=== PATIENT | female | born 1935 | race Caucasian/White ===

== ENCOUNTER 2016-07-10 18:58 | Inpatient (IN) | payer MEDICARE, OTHER ==
[2016-07-10] MEDS ORDERED: IPRATROPIUM/ALBUTEROL 0.5-2.5 MG/3 ML AMPUL NEB ONE (19:06)
[2016-07-10] MEDS ORDERED: NORMAL SALINE IV PRN (19:23)
[2016-07-10] MEDS ORDERED: VANCOMYCIN HCL INJ 1000 MG VIAL IV ONE (19:23)
[2016-07-10] MEDS ORDERED: CEFEPIME 1 GM/D5W RTU 50 ML IV ONE (19:24)
--- NOTE | 2016-07-10 19:29 | ER Document Report ---
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 EMS was called to her house yesterday, she was given a DuoNeb and improved. She declined transport at that time. Today, she called EMS and was tachypneic, tachycardic and satting 70% on room air. She does not wear oxygen at home. EMS gave her 1 DuoNeb, 125 mg Solu-Medrol and was placed on CPAP. She kept trying to rip off her CPAP and 2 mg of Valium was given by EMS. When she arrived to the emergency room, she was switched to BiPAP and is no longer agitated. The patient will answer some questions appropriately, but with other questions, she does not answer them. When asked if she would want intubation or CPR if needed, she did not provide an answer. No DNR/DNi forms with her. - Related Data Allergies/Adverse Reactions: Penicillins Allergy (Unknown, Verified 01/23/12 12:24) Past Medical History - General Information source: Relative - Son, Emergency Med Personnel - Social History Smoking Status: Former Smoker Family History: Reviewed & Not Pertinent - Past Medical History Cardiac Medical History: Reports: Hx Coronary Artery Disease, Hx Hypercholesterolemia, Hx Hypertension Pulmonary Medical History: Denies: Hx Tuberculosis Neurological Medical History: Reports: Hx Cerebrovascular Accident - 09/16. Denies: Hx Seizures Malignancy Medical History: Reports: Hx Cervical Cancer, Hx Lung Cancer - present, Hx Ovarian Cancer Musculoskeltal Medical History: Reports Hx Arthritis Traumatic Medical History: Reports: Hx Fractures - Right Past Surgical History: Reports: Hx Hysterectomy, Hx Orthopedic Surgery - right hip. Denies: Hx Pacemaker - Immunizations Hx Diphtheria, Pertussis, Tetanus Vaccination: No - states 30 years ago Hx Pneumococcal Vaccination: 11/06/11 Review of Systems - Review of Systems -: Yes ROS unobtainable due to patient's medical condition Physical Exam - Vital signs Vitals: Resp Pulse Ox 20 95 07/10/16 12:51 07/10/16 12:51 - Notes Notes: PHYSICAL EXAMINATION: GENERAL: Frail, tachypneic, in moderate respiratory distress on BiPap HEAD: Atraumatic, normocephalic. EYES: Pupils equal round and reactive to light, extraocular movements intact, sclera anicteric, conjunctiva are normal. ENT: nares patent, oropharynx clear without exudates. Moist mucous membranes. NECK: Normal range of motion, supple without lymphadenopathy LUNGS: Tachypneic, crackles in right lower lobe, decreased air movement in right upper lobe HEART: Tachycardic, regular rhythm ABDOMEN: Soft, nontender, normoactive bowel sounds. No guarding, no rebound. No masses appreciated. EXTREMITIES: Chronically contracted left upper extremity, no pitting or edema. No cyanosis. NEUROLOGICAL: AAOx2 (name, place), cranial nerves grossly intact. Normal sensory exam. PSYCH: Normal mood, normal affect. SKIN: Warm, Dry, normal turgor, no rashes or lesions noted. Course - Re-evaluation Re-evalutation: 07/10/16 20:39 Son to bedside. 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 Her primary care physician is SOPHIA Coker, in [place] and she thinks her Oncologist was at [place]. Patient states that she does not want to be intubated even if this means that she would . She did not give an answer about CPR. 07/11/16 00:07 Pt with pleural effusions, lung mass and multiple areas of atelectasis on CTA. No pulmonary embolism. With the leukocytosis, tachycardia, tachypnea and hypoxia, broad-spectrum antibiotics were started after blood cultures were sent. Pt resting comfortably on BiPap. Pt requires Inpatient admission due to hypoxia (70% on RA and no home O2). 07/11/16 00:30: Pt started to become hypotensive with worsening tachycardia. Levophed was started through a large peripheral IV line and then switched over to the RIJ Central line after it was placed. Her MAPs improved with low doses (5 ) of Levophed. 07/11/16 02:[address] Correa and will admit patient as Inpatient to ICU. - Vital Signs Vital signs: Temp Pulse Resp BP Pulse Ox 22 H 133/82 H 100 07/11/16 02:15 07/11/16 02:15 07/11/16 02:15 - Laboratory Result Diagrams: 07/10/16 19:45 07/10/16 19:45 Laboratory results interpreted by me: 07/10/16 07/10/16 07/10/16 19:45 19:45 19:45 WBC 15.4 H Hgb 10.8 L Hct 34.3 L MCH 26.8 L MCHC 31.6 L RDW 16.0 H Seg Neutrophils % 90.0 H Lymphocytes % 5.6 L Absolute Neutrophils 13.9 H VBG pCO2 VBG HCO3 Sodium 134.7 L Carbon Dioxide 17 L Est GFR (Non-Af Amer) 57 L Glucose 136 H Direct Bilirubin 0.5 H NT-Pro-B Natriuret Pep 6320 H 07/10/16 19:45 WBC Hgb Hct MCH MCHC RDW Seg Neutrophils % Lymphocytes % Absolute Neutrophils VBG pCO2 32.3 L VBG HCO3 17.5 L Sodium Carbon Dioxide Est GFR (Non-Af Amer) Glucose Direct Bilirubin NT-Pro-B Natriuret Pep - Diagnostic Test Radiology reviewed: Image reviewed, Reports reviewed Radiology results interpreted by me: CXR: Confluent densities in the right upper lung field and right lung base as noted above these could represent pneumonic infiltrates or atelectatic changes. Followup to complete clearing is recommended to exclude an underlying process. Other findings as noted above 07/11/16 00:04 No evidence for pulmonary embolic disease. A moderate size right and small left pleural effusions are identified. There is extensive associated airspace consolidation on the right consistent with atelectatic changes. There is minimal airspace consolidation in the left lung base most consistent with atelectatic changes. Mass lesion is identified in the right upper lung field showing interval increase in size as compared to the previous study. The appearance is consistent with a neoplastic process. The mass extends to the right hilar region. Other findings as noted above - EKG Interpretation by Me EKG shows normal: Sinus rhythm Rate: Tachycardia - HR 128 [place]/QRS: IVCD When compared to previous EKG there are: No significant change Procedures - Central Line Right Internal jugular Time completed: 00:54 Consent obtained: Yes - Verbal consent witnessed by 2 RNs Central line pre-insertion: Sterile PPE donned, Chloraprep applied, Sterile drapes applied Central line lumen type: Triple Anesthetic type: 1% Lidocaine mL's of anesthesia: 5 Ultrasound guided: Yes CM at insertion site: 16 Line secured with sutures: Yes Central line post-insertion: Blood return from lumens, Biopatch applied, Sutured , Sterile dressing applied, Position confirmed w/ CXR Number of attempts: 1 Complications: No Critical Care Note - Critical Care Note Total time excluding time spent on procedures (mins): 65 Discharge - Discharge Clinical Impression: Hypoxia, Pleural effusion, Septic shock Pneumonia Qualifiers: Pneumonia type: due to unspecified organism Laterality: right Lung location: unspecified part of lung Qualified Code(s): J18.9 - Pneumonia, unspecified organism Lung cancer Qualifiers: Laterality: unspecified laterality Lung location: unspecified part of lung Qualified Code(s): C34.90 - Malignant neoplasm of unspecified part of unspecified bronchus or lung Condition: Critical Disposition: ADMITTED INPATIENT [facility] Admitted: ICU
[2016-07-10 20:05] LABS: ABSOLUTE BASOPHILS # (AUTO) 0.1 10^3/uL (0.0-0.2); ABSOLUTE LYMPHOCYTES (AUTO) 0.9 10^3/uL (0.5-4.7); ABSOLUTE MONOCYTES (AUTO) 0.6 10^3/uL (0.1-1.4); ABSOLUTE NEUT (AUTO) 13.9 10^3/uL (1.7-8.2); BASOPHILS % (AUTO) 0.3 % (0-2); EOSINOPHILS % (AUTO) 0.2 % (0-6); HEMATOCRIT 34.3 % (36.0-47.0); HEMOGLOBIN 10.8 g/dL (12.0-15.5); HGB HCT DIFFERENCE -1.9; LYMPHOCYTES % (AUTO) 5.6 % (13-45); MEAN CORPUSCULAR HEMOGLOBIN 26.8 pg (27.0-33.4); MEAN CORPUSCULAR HGB CONC 31.6 g/dL (32.0-36.0); MEAN CORPUSCULAR VOLUME 85 fl (80-97); MONOCYTES % (AUTO) 3.9 % (3-13); PARTIAL THROMBOPLASTIN TIME 26.9 SEC (23.5-35.8); PROTHROMBIN TIME 13.8 SEC (11.4-15.4); RED BLOOD COUNT 4.03 10^6/uL (3.72-5.28); WHITE BLOOD COUNT 15.4 10^3/uL (4.0-10.5)
[2016-07-10 20:18] LABS: ALANINE AMINOTRANSFERASE 27 U/L (9-52); ALBUMIN 3.5 g/dL (3.5-5.0); ALKALINE PHOSPHATASE 96 U/L (38-126); ANION GAP 12 (5-19); ASPARTATE AMINO TRANSFERASE 23 U/L (14-36); BILIRUBIN,DIRECT 0.5 mg/dL (0.0-0.4); BLOOD UREA NITROGEN 12 mg/dL (7-20); CALCIUM 8.6 mg/dL (8.4-10.2); CARBON DIOXIDE 17 mmol/L (22-30); CHLORIDE 106 mmol/L (98-107); CREATINE KINASE 55 U/L (30-135); CREATININE RESULT 0.95 mg/dL (0.52-1.25); GLUCOSE 136 mg/dL (75-110); LIPASE 97.2 U/L (23-300); POTASSIUM 4.3 mmol/L (3.6-5.0); SODIUM 134.7 mmol/L (137-145); TOTAL PROTEIN 6.4 g/dL (6.3-8.2)
--- NOTE | 2016-07-10 20:23 | RADIOLOGY REPORT (SQ) ---
EXAM DESCRIPTION: CHEST SINGLE VIEW COMPLETED DATE/TIME: 07/10/2016 7:23 pm REASON FOR STUDY: hypxoia COMPARISON: January 2012 EXAM PARAMETERS: NUMBER OF VIEWS: One view. TECHNIQUE: Single frontal radiographic view of the chest acquired. RADIATION DOSE: NA LIMITATIONS: None. FINDINGS: LUNGS AND PLEURA: Confluent densities are identified in the right upper lung field and rig ht lung base which could represent pneumonic infiltrates or atelectatic changes. Follow-up to comple te clearing is recommended to exclude an underlying process. A right lung mass was identified in the right upper lobe on the previous study. The left lung is clear. There is some blunting of the righ t costophrenic angle which could represent a small right pleural effusion. MEDIASTINUM AND HILAR STRUCTURES: No masses. Contour normal. HEART AND VASCULAR STRUCTURES: The configuration of the heart and mediastinal structures is unchanged . BONES: No acute findings. HARDWARE: None in the chest. OTHER: No other significant finding. IMPRESSION: Confluent densities in the right upper lung field and right lung base as noted above the se could represent pneumonic infiltrates or atelectatic changes. Followup to complete clearing is re commended to exclude an underlying process. Other findings as noted above TECHNICAL DOCUMENTATION: JOB ID: [id number]
[2016-07-10 20:30] LABS: TROPONIN I < 0.012 ng/mL
[2016-07-10 20:44] LABS: VENOUS BLOOD BASE EXCESS -7.2 mmol/L; VENOUS BLOOD HCO3 17.5 mmol/L (20-32); VENOUS BLOOD PCO2 32.3 mmHg (35-63); VENOUS BLOOD PH 7.35 (7.30-7.42)
--- NOTE | 2016-07-10 21:14 | EKG REPORT ---
SEVERITY:- ABNORMAL ECG - SINUS TACHYCARDIA WITH FREQUENT ATRIAL ECTOPICS MULTIFORM VENTRICULAR PREMATURE COMPLEXES PROBABLE LEFT ATRIAL ABNORMALITY NONSPECIFIC INTRAVENTRICULAR CONDUCTION DELAY LOW VOLTAGE IN FRONTAL LEADS : Confirmed by: Lupillo Boyle 10-Jul-2016 21:13:57
--- NOTE | 2016-07-10 23:48 | RADIOLOGY REPORT (SQ) ---
EXAM DESCRIPTION: CTA CHEST COMPLETED DATE/TIME: 07/10/2016 10:55 pm REASON FOR STUDY: hypoxia, Hx lung cancer, tachycardia COMPARISON: CTA of the chest dated January 2012 and chest x-ray dated 07/10/2016 TECHNIQUE: CT scan of the chest performed using helical scanning technique with dynamic intravenous contrast injection. Images reviewed with lung, soft tissue and bone windows. Reconstructed coronal and sagittal MPR images reviewed. Additional 3 dimensional post-processing performed to develop Maximal Intensity Projection images (SD P). All images stored on PACS. All CT scanners at this facility use dose modulation, iterative reconstruction, and/or weight based d osing when appropriate to reduce radiation dose to as low as reasonably achievable (ALARA). [facility]: Dose Right [facility]: CareDose [facility]: Dose Right [facility]: Teradose 4D [facility]: [employer] CONTRAST TYPE AND DOSE: 100 mL Isovue 370 RENAL FUNCTION: Creatinine 0.95 RADIATION DOSE: 57.31 mGy. LIMITATIONS: None. FINDINGS: LUNGS AND PLEURA: A moderate size right and small left pleural effusions are identified. There is associated extensive airspace consolidation in the right lung consistent with atelectatic ch anges. There is some minimal airspace consolidation in the left lung base most consistent with atele ctatic changes. A mass lesion is identified in the right upper lung field measuring 4.9 x 5.7 cm in diameter showing interval increase in size as compared to the previous chest CT scan. The appearance is consistent with a neoplastic process. AORTA AND GREAT VESSELS: No aneurysm or dissection. There is ectasia of the thoracic aorta with exte nsive vascular calcifications HEART: No pericardial effusion. PULMONARY ARTERIES: No emboli visualized in the main pulmonary arteries or the segmental branches. HILAR AND MEDIASTINAL STRUCTURES: The mass lesion on the right extends to the right hilar region. HARDWARE: None in the chest. UPPER ABDOMEN: No significant findings. Limited exam. THYROID AND OTHER SOFT TISSUES: No masses. No adenopathy. BONES: No acute or significant finding. 3D MIPS: Confirm above findings. OTHER: No other significant finding. IMPRESSION: No evidence for pulmonary embolic disease. A moderate size right and small left pleural effusions are identified. There is extensive associated airspace consolidation on the right consist ent with atelectatic changes. There is minimal airspace consolidation in the left lung base most con sistent with atelectatic changes. Mass lesion is identified in the right upper lung field showing in terval increase in size as compared to the previous study. The appearance is consistent with a neopl astic process. The mass extends to the right hilar region. Other findings as noted above TECHNICAL DOCUMENTATION: JOB ID: [id number] Quality ID # [id number]: Final reports with documentation of one or more dose reduction techniques (e.g., Au tomated exposure control, adjustment of the mA and/or kV according to patient size, use of iterative reconstruction technique) 2010 [employer]- All Rights Reserved
[2016-07-11] MEDS ORDERED: DEXTROSE 5%-WATER 250 ML with NOREPINEPHRINE BITARTRATE 4 MG IV PRN ×4 (00:22→04:23)
[2016-07-11] MEDS ORDERED: NOREPINEPHRINE BITARTRATE INJ/PF 4 MG/4 ML SDV IV ONE ×2 (00:25→02:30)
--- NOTE | 2016-07-11 01:19 | RADIOLOGY REPORT (SQ) ---
EXAM DESCRIPTION: CHEST SINGLE VIEW COMPLETED DATE/TIME: 07/11/2016 1:05 am REASON FOR STUDY: central line placement COMPARISON: 07/10/2016. CT, 1 day prior. EXAM PARAMETERS: NUMBER OF VIEWS: One view. TECHNIQUE: Single frontal radiographic view of the chest acquired. RADIATION DOSE: NA LIMITATIONS: None. FINDINGS: LUNGS AND PLEURA: Moderate consolidative opacity of the right hemithorax and moderate inte rstitial markings appears worsened possibly due to positioning -layering. Small right layered effusi on. MEDIASTINUM AND HILAR STRUCTURES: No masses. Contour normal. HEART AND VASCULAR STRUCTURES: Prominent cardiac silhouette. BONES: No acute findings. HARDWARE: Right internal jugular central line tip at the cavoatrial junction. OTHER: No other significant finding. IMPRESSION: Adequate appearing right IJ line. Moderate opacities -layered effusion of the right hem ithorax. TECHNICAL DOCUMENTATION: JOB ID: [id number]
[2016-07-11] MEDS ORDERED: HALOPERIDOL LACTATE INJ 5 MG/1 ML VIAL IV ONE (02:27)
[2016-07-11] MEDS ORDERED: HALOPERIDOL LACTATE INJ 5 MG/1 ML VIAL ONE (02:31)
[2016-07-11 03:28] LABS: ADD ON TESTING BLD IN LAB ACKNOWLEDGE
[2016-07-11 03:45] LABS: MAGNESIUM 2.1 mg/dL (1.6-2.3)
[2016-07-11] MEDS ORDERED: DEXTROSE 50%-WATER 25 GM/50 ML DISP.SYRIN IV PRN ×2 (04:20)
[2016-07-11] MEDS ORDERED: ALBUTEROL SULFATE 0.083% NEB 2.5 MG/3 ML AMPUL NEB PRN (04:20)
[2016-07-11] MEDS ORDERED: GLUCAGON,HUMAN RECOMB 1 MG INJ SUBCUT PRN (04:20)
[2016-07-11] MEDS ORDERED: DEXTROSE 40% GEL 15 GM TUBE PO PRN ×2 (04:20)
[2016-07-11] MEDS ORDERED: NORMAL SALINE 1000 ML 1,000 ML IV PRN ×2 (04:24→08:21)
[2016-07-11] MEDS ORDERED: VANCOMYCIN HCL 0 MG in DEXTROSE 5%-WATER 250 ML IV NR (04:30)
[2016-07-11] MEDS ORDERED: PHARMACY COMMUNICATION ORDER MC SCH (04:30)
[2016-07-11] MEDS ORDERED: ACETAMINOPHEN 650 MG SUPP.RECT PR PRN (04:33)
--- NOTE | 2016-07-11 04:59 | PDOC H&P ---
History of Present Illness Admission Date/PCP: 07/11/16 02:55 PCP Zoltan Coker [facility] [place] Patient complains of: difficulty breathing History of Present Illness: MARYANN LAMAS is a 80 year old female with underlying 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 EMS was called to her home on the fourth due to shortness of breath but she declined transport at that time. However, on the fifth, when shortness of breath worsened, EMS was called again. 70% saturation on room air. No home oxygen. En route, was given 1 DuoNeb, 125 mg of Solu-Medrol, and was placed on CPAP. Patient kept trying to remove the CPAP. 2 mg of Valium was given by EMS. BiPAP was subsequently applied, which she tolerated well. Patient has been discussed with emergency room physician who evaluated the patient. Patient appears quite ill and only mumbles incoherently and is able to provide no history whatsoever in terms of acute or chronic events, review of systems, personal habits, family history, etc. No friends or family are present. Old inpatient records are reviewed. Son was present earlier, and by discussions with emergency room physician with son and patient, patient decided she did not want to be intubated. No answer was given when remaining aspects of CPR were discussed. So at the present time , she is DO NOT INTUBATE status. At 4:10 AM the morning of the sixth, I did leave a generic voicemail with son to please call me at the hospital. Patient did become hypotensive, requiring application of Levophed along with internal jugular central line, inserted by the emergency room physician. No further information available this point in time. Admitted to our service on January 23, 2012 for left hip fracture, status post fall. History and physical exam have been reviewed. Laboratory results are listed in Original and are reviewed. X-ray summary results are listed below, with full report(s) reviewed. . EKG reviewed and compared to prior tracing from January 24, 2012. Social history/personal habits: No information available this point in time. Allergies/adverse reactions are listed in Original and are reviewed. Tolerated cefepime without problems. Home medications initially autopopulated into [employer] may not accurately reflect patient's true medications, dosages, and/or frequencies. instrument room technician to reconcile medications. Unfortunately, patient not able to provide any information related to medications/dosages/frequencies. REVIEW OF SYSTEMS: See history and present illness. No further information available this point in time. PHYSICAL EXAMINATION: 5 feet tall. 40 kg. BMI 17.2 kg/m. Blood pressure 110/56. Pulse 129 and regular. 99% saturation on BiPAP 15/5, 80% FiO2. Respirations are 21 and unlabored. Temperature 97.6. Thin frail appearing elderly female, appearing perhaps a bit older than her stated age. Appears not to feel very well. Maintaining her airway well. Does look at speaker when addressed in a slightly loud voice. Only mumbles incoherently. Otherwise, is poorly interactive with her surroundings. Male emergency room nursing education consultant present. Skin is warm and dry. No grossly obvious evidence of rash in areas of skin examined. No subcutaneous nodules palpated. ENT: Perhaps slightly hard of hearing to normal conversation. Tongue midline on protrusion pink and slightly tacky. Eyes: No scleral icterus. Pupils equal and reactive to light at 4 mm. Ivan conjunctivae. Neck is nontender to palpation. Midline trachea. No palpable thyroid nodule mass enlargement or tenderness. Lymphatic: No palpable cervical or clavicular nodes. Neck and lymphatic exams limited by patient body habitus. Psychiatric: Cannot be adequately evaluated due to her current status. See above. Lungs: Auscultation reveals slightly coarse breath sounds bilaterally in the bases, with some decrease in the right base breath sounds compared to the left. No use of accessory respiratory muscles. Cardiovascular: Heart regular rate and rhythm, without gallop murmur or rub. No carotid or abdominal aortic bruits. No ankle or pedal edema. Faintly palpable dorsalis pedis pulses. Slight wrinkling of the skin and soft tissue in her lower extremities, not uncommonly seen when prior soft tissue swelling has resolved. Abdomen:soft slightly distended nontender with positive bowel sounds. Unable to adequately evaluate abdomen for masses or organomegaly due to distention. Extremities: Feet are warm and dry. No calf tenderness to compression. Gentle manipulation of lower extremities fails to reveal any obvious evidence of injury or instability to knees hips or ankles. Neurologic: Moves upper extremities grossly normally. Patellar reflexes absent. Absent Babinski. Light touch cannot be determined due to her current status. Past Medical History Past Medical History: Information limited to prior records, which are reviewed. Pulmonary Medical History: Reports: Chronic Obstructive Pulmonary Disease (COPD) Neurological Medical History: Reports: Other - Prior stroke with left hemiparesis Malignancy Medical History: Reports: Cervical Cancer, Lung Cancer - Metastatic small cell, status post chemoradiation treatment, Ovarian Cancer Past Surgical History Past Surgical History: Reports: Hysterectomy, Orthopedic Surgery - right hip Social History Information Source: Emergency Med Personnel, [facility] Records Smoking Status: Unknown if Ever Smoked - Advance Directive Resuscitation Status: Do Not Intubate Surrogate healthcare decision maker:: Probably son David, but not completely certain. Family History Family History: Reviewed & Not Pertinent Parental Family History Reviewed: No - Patient cannot provide any information. Children Family History Reviewed: No - Patient cannot provide any information. Sibling(s) Family History Reviewed.: No - Patient cannot provide any information. Medication/Allergy Home Medications: Albuterol Sulfate [Ventolin 0.083% Neb 2.5 mg/3 ml Ampul] 2.5 mg NEB RTQ4 Amlodipine Besylate [Norvasc 10 mg Tablet] 10 mg PO DAILY 07/11/16 RX: Simvastatin 20 mg PO QHS 07/11/16 Allergies/Adverse Reactions: Penicillins Allergy (Unknown, Verified 07/11/16 04:34) Physical Exam Vital Signs: Temp Pulse Resp BP Pulse Ox 98.0 F 15 111/53 L 100 07/11/16 03:25 07/11/16 03:25 07/11/16 03:25 07/11/16 03:25 Intake & Output 07/10/16 07/11/16 07/12/16 00:59 00:59 00:59 Weight 40 kg Results Impressions: Chest/Abdomen CTA 07/10/16 19:08 IMPRESSION: No evidence for pulmonary embolic disease. A moderate size right and small left pleural effusions are identified. There is extensive associated airspace consolidation on the right consistent with atelectatic changes. There is minimal airspace consolidation in the left lung base most consistent with atelectatic changes. Mass lesion is identified in the right upper lung field showing interval increase in size as compared to the previous study. The appearance is consistent with a neoplastic process. The mass extends to the right hilar region. Other findings as noted above Chest X-Ray 07/11/16 00:54 IMPRESSION: Adequate appearing right IJ line. Moderate opacities -layered effusion of the right hemithorax. Assessment & Plan - Diagnosis (1) Acute respiratory failure with hypoxemia Is this a current diagnosis for this admission?: YesPlan: Transition to CPAP; wean as tolerated. N.p.o. for the present time. (2) Basal pneumonia of both lungs Is this a current diagnosis for this admission?: YesPlan: Patient will be admitted under pneumonia protocol. Incentive spirometry twice a day. Scheduled DuoNeb's. Antibiotics will consist of intravenous Levaquin and vancomycin, along with cefepime. Pharmacy to assist with dosing. Knee high SCDs for DVT prophylaxis, along with subcutaneous heparin. Time spent in evaluation and management of patient: 58 critical-care minutes. (3) Septic shock Is this a current diagnosis for this admission?: Yes (4) Lung cancer Qualifiers: Laterality: unspecified laterality Lung location: unspecified part of lung Qualified Code(s): C34.90 - Malignant neoplasm of unspecified part of unspecified bronchus or lung Is this a current diagnosis for this admission?: Yes (5) Anemia Qualifiers: Anemia type: unspecified type Qualified Code(s): D64.9 - Anemia, unspecified Is this a current diagnosis for this admission?: YesPlan: Follow-up CBC with differential. No need for transfusion at present time. (6) DNI (do not intubate) Is this a current diagnosis for this admission?: YesPlan: Have not heard from son after generic voicemail message left. - Inpatient Certification Based on my medical assessment, after consideration of the patient's comorbidities, presenting symptoms, or acuity I expect that the services needed warrant INPATIENT care.: Yes I certify that my determination is in accordance with my understanding of Medicare's requirements for reasonable and necessary INPATIENT services [42 CFR 412.3e].: Yes Medical Necessity: Need Close Monitoring Due to Risk of Patient Decompensation, Need For IV Fluids, Need For Continuous Telemetry Monitoring, Need for Nebulizer Therapy and Monitoring of Response, Need for IV Antibiotics, Risk of Diagnosis Which Will Require Inpatient Eval/Care/Monitoring
[2016-07-11] MEDS ORDERED: LEVOFLOXACIN 750 MG/D5W RTU 750 MG/150 ML RTUPB IV ONE (05:00)
[2016-07-11 06:25] LABS: VENOUS BLOOD BASE EXCESS -6.7 mmol/L; VENOUS BLOOD HCO3 18.5 mmol/L (20-32); VENOUS BLOOD PCO2 35.9 mmHg (35-63); VENOUS BLOOD PH 7.33 (7.30-7.42)
[2016-07-11 06:27] LABS: HEMATOCRIT 31.8 % (36.0-47.0); HEMOGLOBIN 10.1 g/dL (12.0-15.5); HGB HCT DIFFERENCE -1.5; MEAN CORPUSCULAR HEMOGLOBIN 27.1 pg (27.0-33.4); MEAN CORPUSCULAR HGB CONC 31.8 g/dL (32.0-36.0); MEAN CORPUSCULAR VOLUME 85 fl (80-97); RED BLOOD COUNT 3.73 10^6/uL (3.72-5.28); WHITE BLOOD COUNT 12.7 10^3/uL (4.0-10.5)
[2016-07-11] MEDS ORDERED: NORMAL SALINE INJ/PF 0.9% 10 ML SDV IV PRN (06:41)
[2016-07-11 06:43] LABS: ANION GAP 10 (5-19); BLOOD UREA NITROGEN 13 mg/dL (7-20); CALCIUM 7.9 mg/dL (8.4-10.2); CARBON DIOXIDE 18 mmol/L (22-30); CHLORIDE 107 mmol/L (98-107); CREATININE RESULT 0.99 mg/dL (0.52-1.25); GLUCOSE 165 mg/dL (75-110); POTASSIUM 4.6 mmol/L (3.6-5.0)
[2016-07-11 06:59] LABS: BAND NEUTROPHILS % (MANUAL) 1 % (3-5); BASOPHILS % (MANUAL) 0 % (0-2); EOSINOPHILS % (MANUAL) 0 % (0-6); LYMPHOCYTES % (MANUAL) 5 % (13-45); TOTAL CELLS COUNTED 100
[2016-07-11 07:00] LABS: ANISOCYTOSIS 1+; BURR CELLS SLIGHT; HYPOCHROMASIA SLIGHT; OVALOCYTES SLIGHT; POIKILOCYTOSIS 1+; POLYCHROMASIA SLIGHT; TOXIC GRANULATION 1+
[2016-07-11] MEDS: IPRATROPIUM/ALBUTEROL 0.5-2.5 MG/3 ML AMPUL NEB SCH ×3 (08:13→19:54)
[2016-07-11] MEDS ORDERED: PHARMACY COMMUNICATION ORDER MC NR (08:15)
[2016-07-11] MEDS ORDERED: METOPROLOL TARTRATE PF/INJ 5 MG/5 ML SDV IV PRN (08:22)
[2016-07-11] MEDS ORDERED: FUROSEMIDE INJ/PF 20 MG/2 ML SDV IV ONE (09:00)
[2016-07-11] MEDS ORDERED: MORPHINE SULFATE 10 MG/ML INJ IV ONE (09:00)
[2016-07-11] MEDS ORDERED: METOPROLOL TARTRATE PF/INJ 5 MG/5 ML SDV IV ONE (09:00)
[2016-07-11] MEDS: FAMOTIDINE INJ/PF 20 MG/2 ML SDV IV SCH ×2 (09:01→21:00)
[2016-07-11] MEDS: HEPARIN SOD (PORCINE) 5,000 UNIT/ML 1 ML SYRINGE SUBCUT SCH ×2 (09:02→21:00)
[2016-07-11] MEDS ORDERED: CEFEPIME 2 GM/D5W RTU 50 ML IV SCH (10:00)
[2016-07-11] MEDS ORDERED: FAMOTIDINE INJ/PF 20 MG/2 ML SDV IV SCH (10:00)
--- NOTE | 2016-07-11 12:16 | EKG REPORT ---
SEVERITY:- ABNORMAL ECG - SINUS TACHYCARDIA WITH IRREGULAR RATE 88-140 RIGHT BUNDLE BRANCH BLOCK LOW VOLTAGE IN FRONTAL LEADS CONSIDER ANTEROSEPTAL INFARCT : Confirmed by: Alison Woodson MD 11-Jul-2016 12:15:01
[2016-07-11] MEDS: MORPHINE SULFATE 10 MG/ML INJ IV PRN ×2 (14:29→20:48)
[2016-07-11 15:09] LABS: APPEARANCE,URINE SLIGHTLY-CLOUDY; BILIRUBIN,URINE NEGATIVE (NEGATIVE); GLUCOSE, URINE NEGATIVE (NEGATIVE); KETONES,URINE TRACE mg/dL (NEGATIVE); LEUKOCYTE ESTERASE,URINE SMALL (NEGATIVE); NITRITE,URINE NEGATIVE (NEGATIVE); PROTEIN,URINE 30 mg/dL (NEGATIVE); URINE SPECIFIC GRAVITY > 1.060; UROBILINOGEN,URINE NEGATIVE mg/dL (<2.0)
[2016-07-11] MEDS ORDERED: VANCOMYCIN HCL 500 MG in DEXTROSE 5%-WATER 100 ML IV SCH (18:00)
--- NOTE | 2016-07-11 20:52 | PDOC PROGRESS REPORT ---
Subjective Progress Note for:: 07/11/16 Subjective:: Patient reports pain in her bilateral arms. Patient currently on CPAP. Patient has been off of Levophed. Patient denies chest pain, fever, chills, nausea, vomiting, diarrhea, constipation, rash. Patient admits to ongoing shortness of breath. Patient reports she would like her surrogate decision-maker to be her son. Physical Exam Vital Signs: Temp Pulse Resp BP Pulse Ox 97.7 F 135 H 21 H 127/66 H 100 07/11/16 06:21 07/11/16 05:59 07/11/16 06:21 07/11/16 06:21 07/11/16 06:21 Intake & Output 07/10/16 07/11/16 07/12/16 06:59 06:59 06:59 Weight 47.3 kg Exam: GENERAL: Moderate respiratory distress, tachypnea, thin, chronically ill- appearing, acutely ill-appearing HEENT: Conjunctiva clear, nonicteric, moist mucous membranes, + 2 clavicles JVD , midline trachea RESPIRATORY: Rhonchi bilaterally, tachypnea, accessory muscle usage, mild retractions CARDIAC: tachycardic, IRR, +2/6 sm lusb ABDOMEN: Soft, nondistended, nontender, positive bowel sounds, no rebound, no guarding, no rigidity EXTREMETIES: No cyanosis, clubbing; + 2 edema bilateral lower extremities, bilateral upper extremities, left upper extremity contracted NEUROLOGIC: Alert, oriented to person/place/time, dysarthria, left-sided facial droop, left upper extremity contracture SKIN: No rash, wounds PSYCH: Normal mood, normal affect Results Laboratory Results: 07/11/16 06:15 07/11/16 06:15 07/11/16 07/11/16 07/11/16 06:15 06:15 06:15 WBC 12.7 H RBC 3.73 Hgb 10.1 L Hct 31.8 L MCV 85 MCH 27.1 MCHC 31.8 L RDW 16.0 H Plt Count 305 Seg Neutrophils % Not Reportable Lymphocytes % Not Reportable Monocytes % Not Reportable Eosinophils % Not Reportable Basophils % Not Reportable Absolute Neutrophils Not Reportable Absolute Lymphocytes Not Reportable Absolute Monocytes Not Reportable Absolute Eosinophils Not Reportable Absolute Basophils Not Reportable VBG pH 7.33 VBG pCO2 35.9 VBG HCO3 18.5 L VBG Base Excess -6.7 Sodium 135.0 L Potassium 4.6 Chloride 107 Carbon Dioxide 18 L Anion Gap 10 BUN 13 Creatinine 0.99 Est GFR ( Amer) > 60 Est GFR (Non-Af Amer) 54 L Glucose 165 H Calcium 7.9 L Impressions: Chest/Abdomen CTA 07/10/16 19:08 IMPRESSION: No evidence for pulmonary embolic disease. A moderate size right and small left pleural effusions are identified. There is extensive associated airspace consolidation on the right consistent with atelectatic changes. There is minimal airspace consolidation in the left lung base most consistent with atelectatic changes. Mass lesion is identified in the right upper lung field showing interval increase in size as compared to the previous study. The appearance is consistent with a neoplastic process. The mass extends to the right hilar region. Other findings as noted above Chest X-Ray 07/11/16 00:54 IMPRESSION: Adequate appearing right IJ line. Moderate opacities -layered effusion of the right hemithorax. Assessment & Plan - Diagnosis (1) Septic shock Is this a current diagnosis for this admission?: YesPlan: Patient is now off pressors and has been volume overloaded iatrogenically, and will give her Lasix at this time. (2) Atrial fibrillation with RVR Is this a current diagnosis for this admission?: YesPlan: Place patient on as needed metoprolol. Patient has intermittent bouts of tachycardia with this. Check cardiac enzymes and TSH. Secondary to underlying sepsis. (3) Acute respiratory failure with hypoxemia Is this a current diagnosis for this admission?: YesPlan: Likely secondary to volume overload. Patient's CT of the chest reveals bilateral pleural effusions, atelectasis, and increase in mass size. O2 as needed. (4) Pleural effusion Is this a current diagnosis for this admission?: YesPlan: Secondary to congestive heart failure. Continue diuresis and recheck chest x- ray in the morning. 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 Patient completed a modified chemotherapy according to family at a reduced dosage due to her debility and radiation. Will attempt to obtain outside records. Overall, poor prognosis if patient has subsequent malignant effusions. Have discussed possibility for thoracocentesis. (6) DNR (do not resuscitate) Is this a current diagnosis for this admission?: YesPlan: David surrogate decision-maker (7) Hyponatremia Is this a current diagnosis for this admission?: Yes (8) Protein-calorie malnutrition, moderate Is this a current diagnosis for this admission?: Yes (9) Impaired fasting glucose Is this a current diagnosis for this admission?: Yes (10) Anemia Qualifiers: Anemia type: unspecified type Qualified Code(s): D64.9 - Anemia, unspecified Is this a current diagnosis for this admission?: Yes - Time Time Spent with patient: 35 or more minutes Medications reviewed and adjusted accordingly: Yes
[2016-07-11] MEDS ORDERED: METOPROLOL TARTRATE 25 MG TABLET PO SCH (22:00)
[2016-07-11] MEDS ORDERED: CEFEPIME HCL 2 GM in DEXTROSE 5%-WATER 50 ML IV SCH (22:00)
[2016-07-12] MEDS: MORPHINE SULFATE 10 MG/ML INJ IV PRN ×5 (00:37→12:14)
[2016-07-12 05:22] LABS: PROTHROMBIN TIME 15.9 SEC (11.4-15.4)
[2016-07-12 05:27] LABS: ANION GAP 11 (5-19); BLOOD UREA NITROGEN 20 mg/dL (7-20); CALCIUM 8.1 mg/dL (8.4-10.2); CARBON DIOXIDE 16 mmol/L (22-30); CHLORIDE 111 mmol/L (98-107); GLUCOSE 109 mg/dL (75-110); MAGNESIUM 2.1 mg/dL (1.6-2.3); POTASSIUM 4.9 mmol/L (3.6-5.0); SODIUM 138.1 mmol/L (137-145)
[2016-07-12 05:59] LABS: HEMOGLOBIN 9.7 g/dL (12.0-15.5); HGB HCT DIFFERENCE -0.9; MEAN CORPUSCULAR HEMOGLOBIN 27.3 pg (27.0-33.4); MEAN CORPUSCULAR HGB CONC 32.3 g/dL (32.0-36.0); MEAN CORPUSCULAR VOLUME 85 fl (80-97); RED BLOOD COUNT 3.54 10^6/uL (3.72-5.28); RED CELL DISTRIBUTION WIDTH 16.5 % (11.5-14.0); WHITE BLOOD COUNT 15.7 10^3/uL (4.0-10.5)
[2016-07-12 06:19] LABS: BASOPHILS % (MANUAL) 0 % (0-2); EOSINOPHILS % (MANUAL) 0 % (0-6); LYMPHOCYTES % (MANUAL) 4 % (13-45); TOTAL CELLS COUNTED 100
[2016-07-12 06:22] LABS: BURR CELLS 1+; OVALOCYTES SLIGHT; POIKILOCYTOSIS 1+; POLYCHROMASIA SLIGHT; SCHISTOCYTES SLIGHT
--- NOTE | 2016-07-12 07:16 | RADIOLOGY REPORT (SQ) ---
EXAM DESCRIPTION: CHEST SINGLE VIEW COMPLETED DATE/TIME: 07/12/2016 6:18 am REASON FOR STUDY: , Small cell lung cancer, effusions COMPARISON: 07/11/2016. EXAM PARAMETERS: NUMBER OF VIEWS: One view. TECHNIQUE: Single frontal radiographic view of the chest acquired. RADIATION DOSE: NA LIMITATIONS: None. FINDINGS: LUNGS AND PLEURA: Moderate scattered airspace opacity -layered/loculated effusion of the r ight hemithorax. Moderate bilateral interstitial markings. MEDIASTINUM AND HILAR STRUCTURES: No masses. Contour normal. HEART AND VASCULAR STRUCTURES: Borderline cardiac silhouette size. BONES: No acute findings. HARDWARE: Right internal jugular central line tip at the cavoatrial junction. OTHER: No other significant finding. IMPRESSION: No significant interval change. TECHNICAL DOCUMENTATION: JOB ID: [id number]
[2016-07-12] MEDS ORDERED: FUROSEMIDE INJ/PF 20 MG/2 ML SDV IV ONE (07:40)
[2016-07-12] MEDS ORDERED: PHARMACY COMMUNICATION ORDER MC NR (07:45)
[2016-07-12] MEDS: IPRATROPIUM/ALBUTEROL 0.5-2.5 MG/3 ML AMPUL NEB SCH (08:28)
[2016-07-12] MEDS ORDERED: HALOPERIDOL LACTATE INJ 5 MG/1 ML VIAL IV PRN (09:51)
[2016-07-12] MEDS ORDERED: FUROSEMIDE 20 MG TABLET PO SCH (10:00)
--- NOTE | 2016-07-12 10:27 | PDOC PROGRESS REPORT ---
Subjective Progress Note for:: 07/12/16 Subjective:: Unable to obtain review of systems from patient secondary to encephalopathy. Patient had increased work of breathing overnight requiring the administration of BiPAP. This morning patient is refusing oxygen, BiPAP, and saturating in the low 80s. Repeat chest x-ray reveals loculated effusion and ongoing interstitial infiltrates. Discussed her care with her son and at this time he has elected to make her comfort measures only. We will consult palliative care and place patient on morphine, Ativan, Haldol, and atropine drops. Physical Exam Vital Signs: Temp Pulse Resp BP Pulse Ox 97.0 F 90 15 116/46 L 93 07/12/16 07:21 07/12/16 07:21 07/12/16 07:21 07/12/16 07:21 07/12/16 07:21 Intake & Output 07/11/16 07/12/16 07/13/16 06:59 06:59 06:59 Intake Total 1393 Output Total 995 Balance 398 Weight 47.3 kg Exam: GENERAL: Moderate respiratory distress, tachypnea, thin, chronically ill- appearing, acutely ill-appearing HEENT: Conjunctiva clear, nonicteric, moist mucous membranes, + 2 clavicles JVD , midline trachea RESPIRATORY: Rhonchi bilaterally, tachypnea, accessory muscle usage, mild retractions CARDIAC: tachycardic, IRR, +2/6 sm lusb ABDOMEN: Soft, nondistended, nontender, positive bowel sounds, no rebound, no guarding, no rigidity EXTREMETIES: No cyanosis, clubbing; + 2 edema bilateral lower extremities, bilateral upper extremities, left upper extremity contracted NEUROLOGIC: Alert, oriented to person/place/time, dysarthria, left-sided facial droop, left upper extremity contracture SKIN: No rash, wounds PSYCH: Normal mood, normal affect Results Laboratory Results: 07/12/16 05:03 07/12/16 05:03 07/11/16 07/11/16 07/12/16 07:50 15:00 05:03 WBC 15.7 H RBC 3.54 L Hgb 9.7 L Hct 30.0 L MCV 85 MCH 27.3 MCHC 32.3 RDW 16.5 H Plt Count 338 Seg Neutrophils % Not Reportable Lymphocytes % Not Reportable Monocytes % Not Reportable Eosinophils % Not Reportable Basophils % Not Reportable Absolute Neutrophils Not Reportable Absolute Lymphocytes Not Reportable Absolute Monocytes Not Reportable Absolute Eosinophils Not Reportable Absolute Basophils Not Reportable Sodium Potassium Chloride Carbon Dioxide Anion Gap BUN Creatinine Est GFR ( Amer) Est GFR (Non-Af Amer) Glucose Calcium Magnesium TSH 2.23 Urine Color YELLOW Urine Appearance SLIGHTLY-CLOUDY Urine pH 6.0 Ur Specific [place] > 1.060 Urine Protein 30 H Urine Glucose (UA) NEGATIVE Urine Ketones TRACE H Urine Blood SMALL H Urine Nitrite NEGATIVE Ur Leukocyte Esterase SMALL H Urine WBC (Auto) 15 Urine RBC (Auto) 6 07/12/16 05:03 WBC RBC Hgb Hct MCV MCH MCHC RDW Plt Count Seg Neutrophils % Lymphocytes % Monocytes % Eosinophils % Basophils % Absolute Neutrophils Absolute Lymphocytes Absolute Monocytes Absolute Eosinophils Absolute Basophils Sodium 138.1 Potassium 4.9 Chloride 111 H Carbon Dioxide 16 L Anion Gap 11 BUN 20 Creatinine 1.10 Est GFR ( Amer) 58 L Est GFR (Non-Af Amer) 48 L Glucose 109 Calcium 8.1 L Magnesium 2.1 TSH Urine Color Urine Appearance Urine pH Ur Specific [place] Urine Protein Urine Glucose (UA) Urine Ketones Urine Blood Urine Nitrite Ur Leukocyte Esterase Urine WBC (Auto) Urine RBC (Auto) 07/11/16 07/11/16 07/11/16 15:00 15:00 15:00 Creatine Kinase 150 H CK-MB (CK-2) 2.82 Troponin I 0.024 Impressions: Chest/Abdomen CTA 07/10/16 19:08 IMPRESSION: No evidence for pulmonary embolic disease. A moderate size right and small left pleural effusions are identified. There is extensive associated airspace consolidation on the right consistent with atelectatic changes. There is minimal airspace consolidation in the left lung base most consistent with atelectatic changes. Mass lesion is identified in the right upper lung field showing interval increase in size as compared to the previous study. The appearance is consistent with a neoplastic process. The mass extends to the right hilar region. Other findings as noted above Chest X-Ray 07/12/16 06:00 IMPRESSION: No significant interval change. Assessment & Plan - Diagnosis (1) SCLC (small cell lung carcinoma) Qualifiers: Laterality: right Qualified Code(s): C34.91 - Malignant neoplasm of unspecified part of right bronchus or lung Is this a current diagnosis for this admission?: Yes (2) Septic shock Is this a current diagnosis for this admission?: Yes (3) Atrial fibrillation with RVR Is this a current diagnosis for this admission?: Yes (4) Acute respiratory failure with hypoxemia Is this a current diagnosis for this admission?: Yes (5) Pleural effusion Is this a current diagnosis for this admission?: Yes (6) DNR (do not resuscitate) Is this a current diagnosis for this admission?: Yes (7) Hyponatremia Is this a current diagnosis for this admission?: Yes (8) Protein-calorie malnutrition, moderate Is this a current diagnosis for this admission?: Yes (9) Impaired fasting glucose Is this a current diagnosis for this admission?: Yes (10) Anemia Qualifiers: Anemia type: unspecified type Qualified Code(s): D64.9 - Anemia, unspecified Is this a current diagnosis for this admission?: Yes (11) Acute encephalopathy Is this a current diagnosis for this admission?: Yes - Time Time Spent with patient: 35 or more minutes Medications reviewed and adjusted accordingly: Yes Anticipated discharge: Hospice Within: within 24 hours
[2016-07-12] MEDS: LORAZEPAM INJ 2 MG/1 ML VIAL IV PRN ×2 (10:30→12:15)
[2016-07-12 10:40] VITALS: BP 111/42
[2016-07-12] MEDS: ATROPINE SULFATE 1% OPH SOLN 5 ML BOTTLE SL SCH ×2 (12:17→20:54)
[2016-07-13] MEDS: ATROPINE SULFATE 1% OPH SOLN 5 ML BOTTLE SL SCH (00:26)
[2016-07-13] MEDS ORDERED: LEVOFLOXACIN 750 MG/D5W RTU 750 MG/150 ML RTUPB IV SCH (10:00)
--- NOTE | 2016-07-14 15:34 | Death Summary ---
Summary Date : 07/13/16 Time of :: 01:15 Autopsy: No Resuscitation Status: Comfort Measures Only Primary Care Provider: Zoltan Coker - Final Diagnosis (1) SCLC (small cell lung carcinoma) Is this a current diagnosis for this admission?: Yes (2) Septic shock Is this a current diagnosis for this admission?: Yes (3) Atrial fibrillation with RVR Is this a current diagnosis for this admission?: Yes (4) Acute respiratory failure with hypoxemia Is this a current diagnosis for this admission?: Yes (5) Pleural effusion Is this a current diagnosis for this admission?: Yes (6) Hyponatremia Is this a current diagnosis for this admission?: Yes (7) Protein-calorie malnutrition, moderate Is this a current diagnosis for this admission?: Yes (8) Impaired fasting glucose Is this a current diagnosis for this admission?: Yes (9) Anemia Is this a current diagnosis for this admission?: Yes (10) Acute encephalopathy Is this a current diagnosis for this admission?: Yes Hospital Course:: MARYANN LAMAS is a 80 year old female with underlying 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 EMS was called to her home on the fourth due to shortness of breath but she declined transport at that time. However, on the fifth, when shortness of breath worsened, EMS was called again. 70% saturation on room air. No home oxygen. In route, was given 1 DuoNeb, 125 mg of Solu-Medrol, and was placed on CPAP. Patient kept trying to remove the CPAP. 2 mg of Valium was given by EMS. BiPAP was subsequently applied, which she tolerated well. Patient was weaned off of pressers and was diuresed due to iatrogenic volume overload. Patient was found to have both pneumonia, loculated effusions, and worsening of her lung masses. Patient initially responded but became incresingly dyspneic, hypoxic, and confused. Discussed overall case and prognosis with her son who elected to make her comfort measures. Patient was placed on comfort measures and . Patient was pronounced by two RNs. No autopsy was requested
== END 2016-07-13 02:05 | disposition left against medical advice (07) | DRG 871 ==
LOC: ER 18:58 → EH 07-11 02:55 → UNDOADMIN 07-11 02:55 → EH 07-11 04:21 → ICU 07-11 05:50 → 4S 07-12 15:55
PROVIDERS: ADMIT Family Medicine; ATTEND Family Medicine
PROC: 5A09457 Assistance with Respiratory Ventilation, 24-96 Consecutive Hours, Continuous Positive Airway Pressure (ICD-10-PCS; principal; 2016-07-11)
DX: A41.9 Sepsis, unspecified organism (principal); J18.9 Pneumonia, unspecified organism; R65.21 Severe sepsis with septic shock; J96.01 Acute respiratory failure with hypoxia; C34.90 Malignant neoplasm of unspecified part of unspecified bronchus or lung; I69.354 Hemiplegia and hemiparesis following cerebral infarction affecting left non-dominant side; E87.1 Hypo-osmolality and hyponatremia; E44.0 Moderate protein-calorie malnutrition; Z68.1 Body mass index [BMI] 19.9 or less, adult; J90 Pleural effusion, not elsewhere classified; I48.91 Unspecified atrial fibrillation; Z66 Do not resuscitate; Z51.5 Encounter for palliative care; I25.10 Atherosclerotic heart disease of native coronary artery without angina pectoris; M19.90 Unspecified osteoarthritis, unspecified site; D64.9 Anemia, unspecified; Z92.21 Personal history of antineoplastic chemotherapy; Z85.43 Personal history of malignant neoplasm of ovary; Z85.41 Personal history of malignant neoplasm of cervix uteri; Z90.710 Acquired absence of both cervix and uterus; Z88.0 Allergy status to penicillin; Z87.891 Personal history of nicotine dependence
CPT/HCPCS: 36415; 71010; 71275; 80048; 80053; 81001; 82550; 82553; 82803; 83605; 83690; 83735; 83880; 84443; 84484; 85025; 85610; 85730; 87040; 87086; 93005; 93010; 94640; 94660; 96365; 96367; 99291; C1751; J0692; J1630; J1642; J1644; J1940; J1956; J2060; J2270; J3370; J3490; J7030; J7060; J7620; S0028